=== PATIENT | female | born 1995 | race Caucasian/White ===

== ENCOUNTER 2017-05-26 12:58 | Emergency (ER) | END 2017-05-26 16:37 | disposition left against medical advice (07) ==

== ENCOUNTER 2017-07-28 16:27 | Emergency (ER) | END 2017-07-28 19:18 | disposition home or self-care (01) ==

== ENCOUNTER → 2017-12-24 14:52 | Inpatient (IN) | END | disposition home or self-care (01) | DRG 775 ==

== ENCOUNTER 2018-01-15 11:56 | Emergency (ER) | END 2018-01-15 14:24 | disposition home or self-care (01) ==

== ENCOUNTER 2018-01-19 18:15 | Emergency (ER) | END 2018-01-19 21:43 | disposition home or self-care (01) ==

== ENCOUNTER 2018-10-21 21:12 | Emergency (ER) | payer OTHER ==
[~2018-10-21] VITALS: Ht 154.9 cm; Wt 62.0 kg
[~2018-10-21 21:12] MED LIST: CEPH-443 PO; CIPR-193 PO; IBUP-1542 PO; IBUP-1561 PO; PREMVAG TOPICAL; SENN-120 PO; UDMOM PO
[2018-10-21 21:15] VITALS: BP 142/81; PULSE 75; RESP 18; Ht 154.9 cm; Wt 62.0 kg
--- NOTE | 2018-10-21 23:45 | ERD ---
ER Documentation Chief Complaint Chief Complaint CP X 1 MONTH, TODAY WORSE, RADIAITING PAIN TO THE RIGHT ARM HPI 23-year-old female is here complaining of pain in the right breast and states she feels a bump. She is noticed it for about a month. At times the pain radiates to her right upper extremity. She denies or breast-feeding. No abnormal discharge from her breast. No redness or swelling. No fevers. ROS All systems reviewed and are negative except as per history of present illness. Medications Home Meds Active Scripts Ibuprofen* (Motrin*) 400 Mg Tab, 400 MG PO Q8 for 5 Days, #15 TAB Prov:PORTILLO KHAN MD 01/19/18 Ciprofloxacin Hcl* (Ciprofloxacin Hcl*) 250 Mg Tablet, 250 MG PO BID, #14 TAB Prov:PORTILLO KHAN MD 01/19/18 Ibuprofen* (Ibuprofen*) 600 Mg Tablet, 600 MG PO Q6, #60 TAB 0 Refills Prov:RICKEY PACHECO MD 12/23/17 Estrogens Conjugated* (Premarin* Vaginal Cream) 1 Applic Cr, 1 APPLIC TOPICAL BID, #2 0 Refills Prov:RICKEY PACHECO MD 12/23/17 Sennosides* (Senna Lax*) 8.6 Mg Tablet, 2 TAB PO BID, #60 TAB 1 Refill Prov:RICKEY PACHECO MD 12/23/17 Magnesium Hydroxide* (Betancur' MOM*) 30 Ml Susp, 30 ML PO Q12, #10 3 Refills Prov:RICKEY PACHECO MD 12/23/17 Cephalexin* (Keflex*) 500 Mg Capsule, 500 MG PO QID for 7 Days, CAP Prov:PRECIOUS KUMAR PA-C 07/28/17 Allergies Allergies: Coded Allergies: No Known Allergy (Unverified , 12/21/17) PMhx/Soc Medical and Surgical Hx: pt denies Medical Hx, pt denies Surgical Hx Hx Alcohol Use: No Hx Substance Use: No Hx Tobacco Use: No Smoking Status: Never smoker FmHx Family History: No diabetes Physical Exam Vitals Vital Signs Date Temp Pulse Resp B/P (MAP) Pulse Ox O2 O2 Flow FiO2 Time Delivery Rate 10/21/18 98.5 75 18 142/81 98 21:15 (101) Physical Exam Const: No acute distress Head: Atraumatic Eyes: Normal Conjunctiva ENT: Normal External Ears, Nose and Mouth. Neck: Full range of motion. No meningismus. Resp: Clear to auscultation bilaterally Cardio: Regular rate and rhythm, no murmurs Abd: Soft, non tender, non distended. 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 EKG was done in triage as she stated she has chest pain however it is actually breast pain and EKG was normal. Breast ultrasound is negative. Recommended she follow-up with primary care for outpatient MRI. Patient counseled regarding my diagnostic impression and care plan. Prior to discharge all questions answered. Pt agrees with treatment plan and understands strict return precautions. Pt is instructed to follow up with primary care provider within 24-48 hours. Precautionary instructions provided including instructions to return to the ER if not improving or for any worsening or changing symptoms or concerns. Departure Diagnosis: Primary Impression: Breast pain Condition: Stable Patient Instructions: Breast Self-Exam (BSE) Additional Instructions: Call your primary care doctor TOMORROW for an appointment during the next 1-2 days.See the doctor sooner or return here if your condition worsens before your appointment time. CATHERINE HOLMAN PA-C Oct 21, 2018 23:45
== END 2018-10-22 00:07 | disposition home or self-care (01) ==
LOC: FTE 21:12
DX: N64.4 Mastodynia (principal)
CPT/HCPCS: 76642; 81025; 93005; Z7502